=== PATIENT | male | born 1955 | race Two or more races ===

== ENCOUNTER 2020-11-23 09:47 | Emergency (ER) | payer MEDICARE, MEDICAID ==
[~2020-11-23] VITALS: Ht 185.4 cm; Wt 83.9 kg
[2020-11-23 10:27] VITALS: BP 164/88
== END 2020-11-23 11:53 | disposition home or self-care (01) ==
LOC: ER 09:47
DX: S61.212A Laceration without foreign body of right middle finger without damage to nail, initial encounter (principal); W26.8XXA Contact with other sharp object(s), not elsewhere classified, initial encounter; Y93.89 Activity, other specified; Y92.89 Other specified places as the place of occurrence of the external cause; Y99.8 Other external cause status
CPT/HCPCS: 29130

== ENCOUNTER 2023-01-20 09:48 | Inpatient (IN) | payer OTHER ==
[~2023-01-20] VITALS: Ht 182.9 cm; Wt 84.6 kg
[2023-01-20 10:35] LABS: Basophils # (auto) 0 10 ^3/uL (0-0.2); Basophils % (auto) 0.8 % (0.0-2.0); Eosinophils # (auto) 0.4 10 ^3/uL (0-0.8); Eosinophils % (auto) 7.1 % (0.0-7.0); Hematocrit 39.6 % (41.0-53.0); Hemoglobin 13.2 g/dL (13.5-17.5); Lymphocytes # (auto) 1.6 10 ^3/uL (0.4-5.4); Lymphocytes % (auto) 27.5 % (10.0-50.0); Mean Corpuscular Hemoglobin 30.8 pg (28.0-32.0); Mean Corpuscular Hgb Conc. 33.3 g/dL (32.0-36.0); Mean Corpuscular Volume 92.4 fL (80.0-100.0); Monocytes # (auto) 0.6 10 ^3/uL (0-1.3); Monocytes % (auto) 9.8 % (0.0-12.0); Neutrophils # (auto) 3.3 10 ^3/uL (1.6-8.6); Neutrophils % (auto) 54.8 % (37.0-80.0); Nucleated Red Blood Cells % 0.1 %; Red Blood Cells 4.28 10^6/uL (4.5-5.90); Red Cell Distribution Width 14.2 % (11.8-14.3)
[2023-01-20 10:39] LABS: Urine Bacteria FEW /hpf (None Seen); Urine Blood 3+ /uL (Negative); Urine WBC 823 /hpf (0 - 3); Urine WBC Clumps PRESENT /hpf (None Seen)
[2023-01-20 10:40] LABS: Urine Specific Gravity 1.035 (1.001-1.035)
[2023-01-20] MEDS ORDERED: cefTRIAXone 1GM/50ML D5W 50 ML IV ONE (10:45)
[2023-01-20 10:54] LABS: INR 1.06 (0.9-1.15); Partial Thromboplastin Time 24.8 sec (24.6-33.4)
[2023-01-20 10:59] LABS: Albumin 3.9 g/dL (3.4-5.0); Calcium 9.3 mg/dL (8.5-10.1); Potassium 3.8 mmol/L (3.5-5.1)
[2023-01-20 11:02] LABS: BUN/Creatinine Ratio 13.2 (10.0-20.0); Bilirubin, Total 0.4 mg/dL (0.2-1.0); Total Protein 7.5 g/dL (6.4-8.2)
[2023-01-20] MEDS ORDERED: ONDANSETRON HCL 4 MG/2 ML VIAL IV PRN (12:15)
[2023-01-20] MEDS ORDERED: DOCUSATE SOD 100 MG CAP PO PRN (12:15)
[2023-01-20] MEDS ORDERED: ACETAMINOPHEN 325 MG TAB PO PRN (12:15)
[2023-01-20] MEDS: SODIUM CHLOR 0.9% PF (SALINE LOCK) 10ML VIAL/SYR IV SCH ×2 (14:21→22:00)
[2023-01-20 16:40] VITALS: BP 110/73
[2023-01-20] MEDS ORDERED: HYDR200T36 PO (17:04)
[2023-01-20] MEDS ORDERED: PRE5T PO (17:04)
[2023-01-20] MEDS ORDERED: SUVO1TAB2 PO (17:04)
[2023-01-20] MEDS ORDERED: LISI-287 PO (17:04)
[2023-01-20] MEDS ORDERED: TRAZ50TA2 PO (17:04)
[2023-01-20] MEDS ORDERED: ZOLP5TAB5 PO (17:04)
[2023-01-20 22:00] VITALS: BP 125/75
[2023-01-21 05:00] VITALS: BP 133/86
[2023-01-21] MEDS: SODIUM CHLOR 0.9% PF (SALINE LOCK) 10ML VIAL/SYR IV SCH (05:47)
[2023-01-21 08:30] VITALS: BP 175/90
[2023-01-21 08:47] LABS: Basophils # (auto) 0 10 ^3/uL (0-0.2); Basophils % (auto) 0.2 % (0.0-2.0); Eosinophils # (auto) 0.4 10 ^3/uL (0-0.8); Eosinophils % (auto) 6.6 % (0.0-7.0); Hematocrit 39.7 % (41.0-53.0); Hemoglobin 12.8 g/dL (13.5-17.5); Lymphocytes % (auto) 18.4 % (10.0-50.0); Mean Corpuscular Hemoglobin 29.9 pg (28.0-32.0); Mean Corpuscular Hgb Conc. 32.2 g/dL (32.0-36.0); Mean Corpuscular Volume 92.7 fL (80.0-100.0); Monocytes # (auto) 0.5 10 ^3/uL (0-1.3); Monocytes % (auto) 8.6 % (0.0-12.0); Neutrophils # (auto) 3.5 10 ^3/uL (1.6-8.6); Neutrophils % (auto) 66.2 % (37.0-80.0); Nucleated Red Blood Cells % 0.2 %; Red Blood Cells 4.28 10^6/uL (4.5-5.90); White Blood Cell 5.4 10^3/uL (4.4-10.8)
[2023-01-21 09:00] VITALS: BP 175/90
[2023-01-21 09:04] LABS: Albumin 3.6 g/dL (3.4-5.0); Potassium 3.5 mmol/L (3.5-5.1)
[2023-01-21 09:08] LABS: BUN/Creatinine Ratio 13.8 (10.0-20.0); Bilirubin, Total 0.3 mg/dL (0.2-1.0); Total Protein 7.4 g/dL (6.4-8.2)
[2023-01-21 09:30] VITALS: BP 159/90
[2023-01-21] MEDS ORDERED: cefTRIAXone 1GM/50ML D5W 50 ML IV SCH (10:00)
[2023-01-21] MEDS ORDERED: ENOXAPARIN SOD 40 MG/0.4 ML SYRINGE SC SCH (10:00)
== END 2023-01-21 11:00 | disposition left against medical advice (07) | DRG 690 ==
LOC: ER 09:48 → OVERFLOW 12:16 → WEST WING 15:49
PROVIDERS: ADMIT Internal Medicine; ATTEND Internal Medicine
DX: N30.01 Acute cystitis with hematuria (principal); N17.9 Acute kidney failure, unspecified; D64.9 Anemia, unspecified; C67.9 Malignant neoplasm of bladder, unspecified; Z53.29 Procedure and treatment not carried out because of patient's decision for other reasons; Z85.51 Personal history of malignant neoplasm of bladder
CPT/HCPCS: 36415; 71045; 74176; 80053; 81001; 84484; 85025; 85610; 85730; 87086; 96365; G0378; J0696

== ENCOUNTER 2023-09-06 18:40 | Inpatient (IN) | payer OTHER ==
[~2023-09-06] VITALS: Ht 152.4 cm; Wt 81.8 kg
[~2023-09-06 18:40] MED LIST: HYDR200T36 PO; LISI-287 PO; PRE5T PO; SUVO1TAB2 PO; TRAZ-227 PO; ZOLP5TAB5 PO
[2023-09-06 19:20] LABS: Basophils # (auto) 0 10 ^3/uL (0-0.2); Basophils % (auto) 0.7 % (0.0-2.0); Eosinophils # (auto) 0.3 10 ^3/uL (0-0.8); Eosinophils % (auto) 5.3 % (0.0-7.0); Hematocrit 40.6 % (41.0-53.0); Hemoglobin 13.4 g/dL (13.5-17.5); Lymphocytes # (auto) 1.5 10 ^3/uL (0.4-5.4); Lymphocytes % (auto) 25.7 % (10.0-50.0); Mean Corpuscular Hemoglobin 30.8 pg (28.0-32.0); Mean Corpuscular Hgb Conc. 33.1 g/dL (32.0-36.0); Mean Corpuscular Volume 93.1 fL (80.0-100.0); Monocytes # (auto) 0.5 10 ^3/uL (0-1.3); Monocytes % (auto) 8.5 % (0.0-12.0); Neutrophils # (auto) 3.4 10 ^3/uL (1.6-8.6); Neutrophils % (auto) 59.8 % (37.0-80.0); Red Blood Cells 4.36 10^6/uL (4.5-5.90); Red Cell Distribution Width 13.4 % (11.8-14.3); White Blood Cell 5.7 10^3/uL (4.4-10.8)
[2023-09-06 19:34] LABS: INR 1.19 (0.9-1.15); Partial Thromboplastin Time 29.9 SEC (24.5-34.5); Prothrombin Time 12.4 sec (9.3-11.8)
[2023-09-06 19:39] LABS: Alanine Aminotransferase 16 U/L (7-40); Albumin 4.4 g/dL (3.2-4.8); Alkaline Phosphatase 72 U/L (46-116); Anion Gap 6 (5-15); Aspartate Aminotransferase 17 U/L (13-40); BUN/Creatinine Ratio 10.1 (10.0-20.0); Bilirubin, Total 0.5 mg/dL (0.2-1.0); Blood Urea Nitrogen 12 mg/dL (9-23); Calcium 9.4 mg/dL (8.7-10.4); Carbon Dioxide 28 mmol/L (20-30); Chloride 103 mmol/L (98-107); Glucose 79 mg/dL (74-106); Magnesium 1.9 mg/dL (1.6-2.6); Potassium 3.8 mmol/L (3.5-5.1); Sodium 137 mmol/L (136-145); Total Protein 7.8 g/dL (5.7-8.2)
[2023-09-06] MEDS ORDERED: ASPirin 325 MG TAB PO ONE (20:30)
[2023-09-06] MEDS ORDERED: NITROGLYCERIN 0.4 MG SL TAB SL ONE (20:30)
[2023-09-06] MEDS ORDERED: NITROGLYCERIN 0.4 MG SL TAB SL PRN (21:15)
[2023-09-06] MEDS ORDERED: ACETAMINOPHEN 325 MG TAB PO PRN (21:15)
[2023-09-06] MEDS ORDERED: MORPHINE SULFATE INJ 2 MG/ml SYRG IV PRN (21:15)
[2023-09-06] MEDS ORDERED: ONDANSETRON HCL 4 MG/2 ML VIAL IV PRN (21:15)
[2023-09-06] MEDS ORDERED: ATORVASTATIN 20 MG TAB PO SCH (22:00)
[2023-09-06] MEDS ORDERED: APIXABAN 5 MG TAB PO SCH (22:00)
[2023-09-06 23:39] VITALS: BP 148/80; PULSE 84; RESP 18; TEMP 97.6; O2SAT 97
[2023-09-07] MEDS ORDERED: ASPirin 81 mg TAB PO SCH (10:00)
[2023-09-07] MEDS ORDERED: LISINOPRIL 10 MG TAB PO SCH (10:00)
[2023-09-07] MEDS ORDERED: hydroCHLOROthiazide 25 MG TAB PO SCH (10:00)
[2023-09-07] MEDS ORDERED: METOPROLOL SUCCINATE XL 50 MG TAB PO SCH (10:00)
== END 2023-09-07 02:41 | disposition left against medical advice (07) | DRG 311 ==
LOC: ER 18:40 → TELE 21:15
PROVIDERS: ADMIT Nurse Practitioner; ATTEND Nurse Practitioner Acute Care
DX: I24.9 Acute ischemic heart disease, unspecified (principal); I10 Essential (primary) hypertension; Z53.29 Procedure and treatment not carried out because of patient's decision for other reasons; I48.91 Unspecified atrial fibrillation; Z90.5 Acquired absence of kidney
CPT/HCPCS: 36415; 71045; 80053; 83605; 83690; 83735; 83880; 84484; 85025; 85610; 85730; 93005; G0378

== ENCOUNTER 2024-05-15 09:59 | Emergency (ER) | payer OTHER ==
[~2024-05-15] VITALS: Ht 185.4 cm; Wt 81.6 kg
[2024-05-15 10:29] LABS: Urine Bacteria None Seen /hpf (None Seen)
[2024-05-15 10:38] LABS: Urine Blood 3+ /uL (Negative); Urine Clarity Ex.Turbid (Clear); Urine Color Light-Red (Yellow); Urine Protein, UAD 2+ (Negative); Urine Specific Gravity 1.021 (1.001-1.035); Urine Urobilinogen Normal (Negative); Urine WBC 646 /hpf (0 - 3); Urine WBC Clumps PRESENT /hpf (None Seen)
[2024-05-15] MEDS ORDERED: CIPR-173 PO (11:13)
[2024-05-15] MEDS: cefTRIAXone SOD 1,000 MG VL IM ONE (11:19)
[2024-05-15 11:41] VITALS: BP 158/96; PULSE 65; RESP 16; TEMP 97.5; O2SAT 100
== END 2024-05-15 11:45 | disposition home or self-care (01) ==
LOC: ER 09:59
DX: N39.0 Urinary tract infection, site not specified (principal); I10 Essential (primary) hypertension
CPT/HCPCS: 81001; 96372; 99283; J0696

== ENCOUNTER 2024-07-16 23:27 | Emergency (ER) | payer OTHER ==
[~2024-07-16] VITALS: Ht 182.9 cm; Wt 81.8 kg
[~2024-07-16 23:27] MED LIST changes: +CIPR-173 PO
[2024-07-16] MEDS: NITROGLYCERIN 0.4 MG SL TAB SL ONE (23:42)
[2024-07-16] MEDS: ASPirin 81 mg TAB PO ONE (23:44)
[2024-07-16 23:50] LABS: Basophils # (auto) 0 10 ^3/uL (0-0.2); Basophils % (auto) 0.3 % (0.0-2.0); Eosinophils # (auto) 0.5 10 ^3/uL (0-0.8); Eosinophils % (auto) 3.9 % (0.0-7.0); Hematocrit 41.5 % (41.0-53.0); Hemoglobin 13.4 g/dL (13.5-17.5); Lymphocytes # (auto) 1.8 10 ^3/uL (0.4-5.4); Lymphocytes % (auto) 14.8 % (10.0-50.0); Mean Corpuscular Hemoglobin 30.3 pg (28.0-32.0); Mean Corpuscular Hgb Conc. 32.3 g/dL (32.0-36.0); Mean Corpuscular Volume 93.8 fL (80.0-100.0); Monocytes # (auto) 0.7 10 ^3/uL (0-1.3); Monocytes % (auto) 5.7 % (0.0-12.0); Neutrophils % (auto) 75.3 % (37.0-80.0); Platelet Count (auto) 317 10^3/uL (140-450); Red Blood Cells 4.42 10^6/uL (4.5-5.90); Red Cell Distribution Width 14.7 % (11.8-14.3)
[2024-07-16 23:57] LABS: Chloride 107 mmol/L (98-107); Potassium 3.8 mmol/L (3.5-5.1); Sodium 141 mmol/L (136-145)
[2024-07-16 23:58] LABS: Anion Gap 6 (5-15); Carbon Dioxide 28 mmol/L (20-31)
[2024-07-17 00:04] LABS: BUN/Creatinine Ratio 10.5 (10.0-20.0); Blood Urea Nitrogen 13 mg/dL (9-23); Glucose 75 mg/dL (74-106)
[2024-07-17 00:12] VITALS: PULSE 93; RESP 17; O2SAT 98
--- NOTE | 2024-07-17 00:13 | ED.PDOC ---
History of Present Illness HPI Comments 69 y/o M, with a Hx of AFIB, bladder tumors s/p TURP, blood thinner use, HTN, lupus, nephrectomy, and UTI's, presents with c/o non-radiating, sternal chest pain, shortness of breath, and HTN, today. Patient reports sudden onset of symptoms, this evening, after eating dinner and taking his new prescription HTN medication he was placed on by his new pathologist assistant. Patient comments on noticing his diastolic pressure being "136" at home and taking losartan before being placed on 10-12.5mg lisinopril hctz QD and 80mg sotalol BID. Patient comments on no recent stress, injuries, sick contact, travel, spoiled food intake, or substance use/exposure along with any further relevant or pertinent H x. Patient denies having any palpitations, dizziness, headache, vision or speech changes, nausea, vomiting, fever, chills, or other associated symptoms or modifiers at this time. Upon arrival to ED, patient had a blood pressure of 194/117. Chief Complaint: Chest Pain Time Seen by MD: 23:33 Primary Care Provider: DONAL Reviewed Notes: Nurses Notes, Medications, Allergies Allergies: Coded Allergies: NO KNOWN ALLERGIES (Unverified , 11/23/20) Home Meds Active Scripts Ciprofloxacin Hcl (Cipro) 500 Mg Tab, 1 TAB PO BID, #20 TAB Prov:ASHLEIGH BERGER 05/15/24 Reported Medications Lisinopril & Hydrochlorothiazi (Lisinopril/Hydrochlorothi) 1 Tab Tab, 1 TAB PO DAILY 01/20/23 Prednisone (Prednisone) 5 Mg Tab, 1 TAB PO DAILY 01/20/23 Trazodone Hcl (Trazodone Hcl) 50 Mg Tab, 0.5 TAB PO HS 01/20/23 Suvorexant (Belsomra) 10 Mg Tab, 1 TAB PO QHSP 01/20/23 Zolpidem Tartrate (Zolpidem Tartrate) 5 Mg Tab, 1 TAB PO QHSP 01/20/23 Hydroxychloroquine Sulfate (Hydroxychloroquine Sulfat) 200 Mg Tab, 1 TAB PO DAILY 01/20/23 Information Source: Patient Mode of Arrival: Wheelchair Severity: Moderate Timing: Hours Duration: Since onset Prehospital treatment: None Past Medical History PAST MEDICAL HISTORY: AFIB, HTN, UTI'S Past Medical History (Other): bladder tumors, blood thinner use, Lupus Surgical History (Other): 3x TURP, nephrectomy, eye Sx Family History Family History: Reviewed,noncontributory to illness, Unknown Social History Smoker: Non-Smoker Alcohol: Denies ETOH Use Drugs: Denies Drug Use Lives In: Home Constitutional: denies: chills, diaphoresis, fatigue, fever, malaise, sweats, weakness, others EENTM: denies: blurred vision, double vision, ear bleeding, ear discharge, ear drainage, ear pain, ear ringing, eye pain, eye redness, hearing loss, mouth pain, mouth swelling, nasal discharge, nose bleeding, nose congestion, nose pain, photophobia, tearing, throat pain, throat swelling, voice changes, others Respiratory: reports: shortness of breath; denies: cough, hemoptysis, o rthopnea, SOB at rest, SOB with excertion, stridor, wheezing, others Cardiovascular: reports: chest pain; denies: dizzy spells, diaphoresis, Dyspnea on exertion, edema, irregular heart beat, left arm pain, lightheadedness, palpitations, PND, syncope, others Gastrointestinal: denies: abdomen distended, abdominal pain, blood streaked bowels, constipated, diarrhea, dysphagia, difficulty swallowing, hematemesis, melena, nausea, poor appetite, poor fluid intake, rectal bleeding, rectal pain, vomiting, others Genitourinary: denies: burning, dysuria, flank pain, frequency, hematuria, incontinence, penile discharge, penile sore, pain, testicle pain, testicle swelling, urgency, others Neurological: denies: dizziness, fainting, headache, left sided numbness, left sided weakness, numbness, paresthesia, pre-existing deficit, right sided numbness, right sided weakness, seizure, speech problems, tingling, tremors, w eakness, others Musculoskeletal: denies: back pain, gout, joint pain, joint swelling, muscle pain, muscle stiffness, neck pain, others Integumetry: denies: bruises, change in color, change in hair/nails, dryness, laceration, lesions, lumps, rash, wounds, others Allergic/Immunocompromised: denies: Difficulty Healing, Frequent Infections, Hives, Itching, others Hematologic/Lymphatic: reports: others (HTN); denies: anemia, blood clots, easy bleeding, easy bruising, swollen glands Endocrine: denies: excessive hunger, excessive sweating, excessive thirst, excessive urination, flushing, intolerance to cold, intolerance to heat, unexpla ined weight gain, unexplained weight loss, others Psychiatric: denies: anxiety, bipolar disorder, depression, hopeless, panic disorder, schizophrenia, sleepless, suicidal, others All Other Systems: Reviewed and Negative Physical Exam General Appearance: Moderate Distress, Normal, Other (anxious appearing ) HEENT: Normal ENT Inspection, Pharynx Normal, TMs Normal Neck: Full Range of Motion, Non-Tender, Normal, Normal Inspection Respiratory: Chest Non-Tender, Lungs Clear, No Accessory Muscle Use, No Respiratory Distress, Normal Breath Sounds Cardiovascular: No Edema, No JVD, No Murmur, No Gallop, Normal Peripheral Pulses, Regular Rate/Rhythm Breast Exam: Deferred Gastrointestinal: No Organomegaly, Non Tender, No Pulsatile Mass, Normal Bowel Sounds, Soft Genitalia: Deferred Pelvic: Deferred Rectal: Deferred Extremities: No calf tenderness, Normal capillary refill, Normal inspection, Normal range of motion, Non-tender, No pedal edema Musculoskeletal : Apperance: Normal Neurologic: Alert, information technology architect II-XII nml as Tested, No Motor Deficits, Normal Affect, Normal Mood, No Sensory Deficits Cerebellar Function: Normal Reflexes: Normal Skin: Dry, Normal Color, Warm Lymphatic: No Adenopathy Was a procedure done? Was a procedure done?: No Differential Dx Considerations may include: CT, ACS, PE, HTN urgency, angina, costochondritis, musculoskeletal pain, gastritis, gastroenteritis, PNA, inappropriate medication dosage X-Ray, Labs, Meds, VS Vital Signs Date Time Temp Pulse Resp B/P (MAP) Pulse Ox O2 Delivery O2 Flow Rate FiO2 07/17/24 01:10 22 99 Nasal Cannula* 2 28 07/17/24 01:10 99 Nasal Cannula* 2 28 07/17/24 01:00 93 19 155/86 (109) 100 07/17/24 00:50 167/98 07/17/24 00:32 91 07/17/24 00:12 98.7 93 17 167/98 (121) 98 98.7 07/17/24 00:12 93 17 98 Nasal Cannula* 2 28 07/16/24 23:44 97.4 99 20 194/117 (142) 91 07/16/24 23:42 194/117 07/16/24 23:37 98 Lab Test 07/17/24 00:15 07/16/24 23:32 Range/Units Troponin I High Sensitivity 25 25 </=54 ng/L White Blood Count 12.0 H 4.4-10.8 10^3/uL Red Blood Count 4.42 L 4.5-5.90 10^6/uL Hemoglobin 13.4 L 13.5-17.5 g/dL Hematocrit 41.5 41.0-53.0 % Mean Corpuscular Volume 93.8 80.0-100.0 fL Mean Corpuscular Hemoglobin 30.3 28.0-32.0 pg Mean Corpuscular Hemoglobin Concent 32.3 32.0-36.0 g/dL Red Cell Distribution Width 14.7 H 11.8-14.3 % Platelet Count 317 140-450 10^3/uL Mean Platelet Volume 8.1 6.9-10.8 fL Neutrophils (%) (Auto) 75.3 37.0-80.0 % Lymphocytes (%) (Auto) 14.8 10.0-50.0 % Monocytes (%) (Auto) 5.7 0.0-12.0 % Eosinophils (%) (Auto) 3.9 0.0-7.0 % Basophils (%) (Auto) 0.3 0.0-2.0 % Neutrophils # (Auto) 9.0 H 1.6-8.6 10 ^3/uL Lymphocytes # (Auto) 1.8 0.4-5.4 10 ^3/uL Monocytes # (Auto) 0.7 0-1.3 10 ^3/uL Eosinophils # (Auto) 0.5 0-0.8 10 ^3/uL Basophils # (Auto) 0 0-0.2 10 ^3/uL Nucleated Red Blood Cells 0.0 % Sodium Level 141 136-145 mmol/L Potassium Level 3.8 3.5-5.1 mmol/L Chloride Level 107 98-107 mmol/L Carbon Dioxide Level 28 20-31 mmol/L Anion Gap 6 5-15 Blood Urea Nitrogen 13 9-23 mg/dL Creatinine 1.24 0.700-1.30 mg/dL Glomerular Filtration Rate Calc 63 >90 mL/min BUN/Creatinine Ratio 10.5 10.0-20.0 Serum Glucose 75 74-106 mg/dL Calcium Level 10.0 8.7-10.4 mg/dL Current Medications Medications (Trade) Dose Ordered Sig/Juan Route Start Time Stop Time Status Last Admin Aspirin 324 mg ONCE ONCE PO 07/16/24 23:45 07/16/24 23:46 DC 07/16/24 23:44 Nitroglycerin (Ntrostat Sublingual) 0.4 mg ONCE ONCE SL 07/16/24 23:45 07/16/24 23:46 DC 07/16/24 23:42 Albuterol (Ventolin Medneb) 5 mg ONCE ONCE NEB 07/17/24 01:00 07/17/24 01:01 DC 07/17/24 01:10 Ipratropium Goldvein (Atrovent Medneb) 0.5 mg ONCE ONCE NEB 07/17/24 01:00 07/17/24 01:01 DC 07/17/24 01:10 [place] [id number] Ph: [phone] DIAGNOSTIC IMAGING Diagnostic Imaging Report : [id number] Signed PATIENT: SKYE LAURENT ACCT: [id number] UNIT: [id number] : 1955 LOC: ER ROOM / BED: / AGE / SEX: 69 / M ADM STATUS: REG ER SERVICE [id number] ORDERING PHYSICIAN: SHIRLEY MCDONALD MD PROCEDURE(s): CXRP - CHEST PORTABLE REASON: CP ORDER NUMBER(s): [id number], ACCESSION NUMBER(s): [id number] CHEST RADIOGRAPH Indication:CP Technique: Single frontal view of the chest was obtained Comparison: XY CHEST PORTABLE on DOS: 09/06/23, XY CHEST PORTABLE on DOS: 01/20/23 Findings/ IMPRESSION: Limited evaluation due to patient positioning. Prominent interstitial markings bilaterally suggestive of mild pulmonary edema with associated pulmonary vascular congestion. No focal consolidation or pneumothorax. The bilateral costophrenic angles are not visualized on this study. ATED BY: BUFFY CARTER DO DICTATED DATE/TIME: 07/17/24 0021 SIGNED BY: NICOL CARTERRENITA Rosa PARHAM SIGNED DATE/TIME: 07/17/2420 CC: Time of 1ST Reevaluation: 00:03 Reevaluation 1ST: Unchanged Patient Education/Counseling: Diagnosis, Treatment Family Education/Counseling: No Family Present Departure 1 Departure Time of Disposition: 01:17 (Patient presented with chest pain that was concerning for possible STEMI, ACS, PE, Pneumonia, Muscle Strain, COPD, Dissection. Data: 1. I ordered and reviewed the result of at least 3 labs including a CBC, BMP, and Troponin. 2. I independently interpreted the following tests: EKG which shows sinus arrhythmia and Chest X-ray which shows mild volume overload.Risk:This patient has a high risk of morbidity due to further diagnostic testing or treatment and may suffer from an acute cardiac or respiratory disorder. Workup reveals concern for ACS and patient should be admitted for further workup and possible expert consultation. ) Impression: Primary Impression: Acute chest pain Additional Impression: Shortness of breath Disposition: ADMITTED INPATIENT Admit to: Med Surg Condition: Serious Critical Care Note Critical Care Time?: Yes Critical care comment: Acute chest pain Authorized and Performed by: Shirley Mcdonald MD Total critical care time: Approximately 38 minutes Due to a high probability of clinically significant, life threatening deterioration, the patient required my highest level of preparedness to intervene emergently and I personally spent this critical care time directly and personally managing the patient. This critical care time included obtaining a history; examining the patient; pulse oximetry; ordering and review of studies; arranging urgent treatment with development of a management plan; evaluation of patient's response to treatment; frequent reassessment; and, discussions with other providers. This critical care time was performed to assess and manage the high probability of imminent, life-threatening deterioration that could result in multi-organ failure. It was exclusive of separately billable procedures and treating other patients and teaching time. Please see my other sections and the rest of the note for further information on patient assessment and treatment. Stability Stability form required: No Heart Score Heart Score: Heart Score Response (Comments) Value History Highly Suspicious 2 EKG Repolarization Disturb 1 Age >65 2 Risk Factors 1 or 2 risk factors 1 Troponin Normal limit 0 Total 6 I personally scribed for SHIRLEY MCDONALD MD ([email or web address]) on 07/17/24 at 00:13. Electronically submitted by Mendez Jordan ([email or web address]). I personally scribed for SHIRLEY MCDONALD MD ([email or web address]) on 07/17/24 at 00:37. Electronically submitted by Mendez Jordan ([email or web address]). SHIRLEY MCDONALD MD Jul 17, 2024 00:13
--- NOTE | 2024-07-17 00:24 | DVH ---
CHEST RADIOGRAPH Indication:CP Technique: Single frontal view of the chest was obtained Comparison: XY CHEST PORTABLE on DOS: 09/06/23, XY CHEST PORTABLE on DOS: 01/20/23 Findings/ IMPRESSION: Limited evaluation due to patient positioning. Prominent interstitial markings bilaterally suggestive of mild pulmonary edema with associated pulmonary vascular congestion. No focal consolidation or pne umothorax. The bilateral costophrenic angles are not visualized on this study.
[2024-07-17] MEDS: IPRATROPIUM BROM 0.5 MG/2.5ML INH SOL NEB ONE (01:10)
[2024-07-17] MEDS: ALBUTEROL SULF 2.5 MG/0.5ML(0.5%) NEB SOLN NEB ONE (01:10)
[2024-07-17 02:35] VITALS: BP 137/70; PULSE 86; RESP 12; TEMP 98.2; O2SAT 98
--- NOTE | 2024-07-17 06:13 | ECG ---
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
--- NOTE | 2024-07-17 06:13 | ECG ---
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
--- NOTE | 2024-07-17 10:45 | ECG ---
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
== END 2024-07-17 02:50 | disposition left against medical advice (07) ==
LOC: ER 23:27
DX: R07.89 Other chest pain (principal); R06.02 Shortness of breath; I10 Essential (primary) hypertension; I48.91 Unspecified atrial fibrillation; Z90.5 Acquired absence of kidney; Z98.890 Other specified postprocedural states; Z79.01 Long term (current) use of anticoagulants; Z79.52 Long term (current) use of systemic steroids; Z79.899 Other long term (current) drug therapy
CPT/HCPCS: 36415; 71045; 80048; 84484; 85025; 93005; 94640